=== PATIENT | male | born 1965 | race Caucasian/White ===

== ENCOUNTER 2020-04-17 14:32 | Emergency (ER) | payer BC, SELFPAY ==
[2020-04-17] VITALS (8 sets, daily range): BP systolic 107–138; BP diastolic 79–89; PULSE 60–78; RESP 17–22; TEMP 36.6; O2SAT 97–100
--- NOTE | ~2020-04-17 | XR_ITS ---
EXAMINATION: XR chest 2V DATE: 04/17/2020 15:08 INDICATION: Right chest pain. TECHNIQUE: Frontal and lateral views of the chest were obtained. COMPARISON: None. FINDINGS: The chest demonstrates clear lungs without pneumonia, pleural effusion, or pneumothorax. Th e heart size is normal. IMPRESSION: 1. No acute cardiopulmonary disease. Reviewed, dictated and finalized at location A. [employer]
--- NOTE | 2020-04-17 14:50 | ECG_ITS ---
Measurements Intervals [place] Rate: 65 P: 58 DC: 153 QRS: 7 QRSD: 85 T: 56 QT: 386 QTc: 403 Interpretive Statements SINUS RHYTHM WITH SINUS ARRHYTHMIA BASELINE ARTIFACT- V4 NORMAL ECG Electronically Signed On 04-17-2020 15:52:55 [employer] by Otilio Johns D.O.
[2020-04-17 14:53] LABS: Basophils Percent Auto 0.5 % (0.2-1.2); Eosinophils Absolute Auto 0.2 K/mm3 (0-0.3); Eosinophils Percent Auto 2.9 % (0-4.4); Hematocrit 44.9 % (42.0-52.0); Hemoglobin 15.9 g/dL (14.0-18.0); Immature Granulocyte Absolute 0.02 K/mm3 (0.00-0.031); Immature Granulocyte Percent A 0.3 % (0-0.5); Lymphocytes Absolute Auto 2.34 K/mm3 (0.9-3.2); Lymphocytes Percent Auto 35.9 % (18.3-44.2); Mean Corpuscular HGB Conc 35.4 g/dl (32-36); Mean Corpuscular Hemoglobin 32.6 pg (26-34); Mean Corpuscular Volume 92.2 fl (80-100); Mean Platelet Volume 10.2 fl (7.4-10.4); Monocytes Absolute Auto 0.7 K/mm3 (0.1-0.6); Monocytes Percent Auto 10.3 % (2.6-8.5); Neutrophils Absolute Auto 3.3 K/mm3 (1.3-6.7); Neutrophils Percent Auto 50.1 % (45.5-73.1); Platelet Count Result 213 k/mm3 (150-375); Red Blood Count 4.87 M/mm3 (4.6-6.20); Red Cell Distribution Width 12.1 % (11.5-14.5); White Blood Count 6.5 K/mm3 (4.5-10.0)
[2020-04-17 15:03] LABS: Prothrombin Time 13.3 Seconds (11.1-14.7)
[2020-04-17 15:04] LABS: Anion Gap 7 mmol/L (8-16); Blood Urea Nitrogen 21 mg/dL (9-20); Calcium 9.2 mg/dL (8.4-10.2); Carbon Dioxide 28 mmol/L (22-30); Chloride 105 mmol/L (98-107); Estimated CRCL calculation 78 ml/min; Estimated Glomerular Filt Rate > 60; Glucose 128 mg/dL (75-110); Partial Thromboplastin Time 31.1 SECONDS (22.3-36.8); Potassium 3.9 mmol/L (3.4-5.0); Sodium 140 mmol/L (137-145)
--- NOTE | 2020-04-17 15:11 | ED.CHESTPAIN ---
HPI - Chest Pain General Chief Complaint: Chest Pain Stated Complaint: chest pressure Time Seen by Provider: 04/17/20 14:35 History of Present Illness HPI narrative: Patient is a 54-year-old male who presents ER with chest pain. Intermittent over the last 2 weeks. Sometimes will have chest pressure throughout the entire day. Today he had chest pressure for about 1 hour lasting from 930 to 10:30 AM. No real radiation. Denies fever/chills/sweats. Has found no aggravating or alleviating factors. No previous history of coronary disease and had her close family relative. Patient reports it may be related to anxiety. She also notices it more at nighttime. Denies orthopnea or acid reflux. No exertional chest pain. Related Data Home Medications Medication Instructions Recorded Confirmed carbidopa-levodopa tablet 04/17/20 metformin mg PO 04/17/20 Allergies Allergy/AdvReac Type Severity Reaction Status Date / Time No Known Allergies Allergy Verified 04/17/20 14:39 Review of Systems Review of Systems: All systems reviewed & are unremarkable except as noted in HPI and below Constitutional: Constitutional: Denies chills, Denies fever(s) and Denies weakness ENT: Denies nasal congestion and Denies sore throat Cardiovascular: Cardiovascular: Reports chest pain, Denies rapid heart rate and Denies radiating jaw, neck or arm pain Respiratory: Respiratory: Denies cough, Denies dyspnea and Denies wheezing Gastrointestinal: Gastrointestinal: Denies nausea and Denies vomiting Psychiatric: Psychiatric: Reports anxiety PMFSH Past Medical History Medical History (Updated 04/17/20 @ 18:24 by Christopher Rubio MD) Parkinsons disease Type 2 diabetes mellitus Surgical History Surgical History (Updated 04/17/20 @ 15:14 by Christopher Rubio MD) No pertinent past surgical history Social History Social History (Updated 04/17/20 @ 15:14 by Christopher Rubio MD) Smoking status: Never smoker Gender identity (if verbalized by the patient): Male Exam Narrative: Exam Narrative: GENERAL: Well-appearing, well-nourished, and in no acute distress. HEAD: Normocephalic, atraumatic. CHEST: Clear to auscultation. No respiratory distress. HEART: Regular rate and rhythm. Normal peripheral pulses. ABDOMEN: Soft, nontender, nondistended. EXTREMITIES: Normal range of motion. Trace edema. SKIN: Warm, dry, no rash. NEURO: Alert and oriented x3. PSYCH: Normal mood and affect. Course Course Emergency Course: CP free. Neg trop x 2. Pt would like a sleep aid. WIll rx atarax. Vital Signs Vital signs: Vital Signs Temperature 98 F 04/17/20 14:35 Pulse Rate 64 04/17/20 14:35 Respiratory Rate 18 04/17/20 14:35 Blood Pressure 138/89 04/17/20 14:35 Pulse Oximetry 97 04/17/20 14:35 Temperature 98 F 04/17/20 14:35 Pulse Rate 68 04/17/20 17:32 Respiratory Rate 22 H 04/17/20 17:32 Blood Pressure 119/83 04/17/20 17:32 Pulse Oximetry 100 04/17/20 17:32 MDM - Chest Pain Lab Data Result diagrams: 04/17/20 14:46 04/17/20 14:46 Labs: Lab Results 04/17/20 04/17/20 04/17/20 Range/Units 14:46 14:46 14:46 WBC 6.5 (4.5-10.0) K/mm3 RBC 4.87 (4.6-6.20) M/mm3 Hgb 15.9 (14.0-18.0) g/dL Hct 44.9 (42.0-52.0) % MCV 92.2 (80-100) fl MCH 32.6 (26-34) pg MCHC 35.4 (32-36) g/dl RDW 12.1 (11.5-14.5) % Plt Count 213 (150-375) k/mm3 MPV 10.2 (7.4-10.4) fl Immature Gran % (Auto) 0.3 (0-0.5) % Neut % (Auto) 50.1 (45.5-73.1) % Lymph % (Auto) 35.9 (18.3-44.2) % [place] % (Auto) 10.3 H (2.6-8.5) % Eos % (Auto) 2.9 (0-4.4) % Baso % (Auto) 0.5 (0.2-1.2) % Lymph # (Auto) 2.34 (0.9-3.2) K/mm3 [place] # (Auto) 0.7 H (0.1-0.6) K/mm3 Eos # (Auto) 0.2 (0-0.3) K/mm3 Baso # (Auto) 0.0 (0.0-0.1) K/mm3 Abs Immat Gran (auto) 0.02 (0.00-0.031) K/mm3 Absolute Neuts (auto) 3.3 (1.3-6.7) K
[2020-04-17 15:16] LABS: Troponin I < 0.012 ng/mL (0.000-0.034)
[2020-04-17 18:07] LABS: Troponin I < 0.012 ng/mL (0.000-0.034)
== END 2020-04-17 18:35 | disposition home or self-care (01) ==
PROVIDERS: Emergency Provider Emergency Medicine; PCP Internal Medicine
DX: R07.89 Other chest pain (principal); G47.00 Insomnia, unspecified; E11.9 Type 2 diabetes mellitus without complications; G20 Parkinson's disease; Z79.84 Long term (current) use of oral hypoglycemic drugs
CPT/HCPCS: 36415; 71046; 80048; 84484; 85025; 85610; 85730; 93005; 99284